=== PATIENT | male | born 1950 | race Caucasian/White ===

== ENCOUNTER → 2020-03-07 | Outpatient (CLI) | payer OTHER ==
[~2020-03-07] MED LIST: ADULT ASPIRIN R81 MG PO; ALLEGRA ALLERG180 MG PO; ATORVASTATIN CA80 MG PO; BACTRIM DS TAB1 EAC1 PO; CIALIS20 MG PO; CIPRO500 M1 PO; DOXYCYCLINE 10100 MG PO; EFFIENT10 MG PO; FISH OIL 1,0001 EAC9 PO; GLIPIZIDE 10 MG10 MG PO; HUMALOG100 UNIT/1 SUBQ; LATANOPROST 0.2.5 ML OPHTHALMIC; LISINOPRIL-HCT1 EACH PO; METFORMIN HCL500 M3 PO; NORCO 10-325 T1 EACH PO; PRASUGREL HCL10 MG PO; TOUJEO MAX300 UNIT/1 SUBQ
== END ==
LOC: LAB 03-06 14:14
PROVIDERS: ATTEND Podiatrist
DX: Z01.812 Encounter for preprocedural laboratory examination (principal); Z20.828 Contact with and (suspected) exposure to other viral communicable diseases

== ENCOUNTER 2020-03-11 07:51 | Day surgery (SDC) | payer OTHER ==
[~2020-03-11] VITALS: Ht 182.9 cm; Wt 103.3 kg
--- NOTE | ~2020-03-11 | O ---
[facility] [place] [address] OPERATIVE REPORT Name: NOEMÍ ABERNATHY Room #: DEP [facility]..#: [id number] Admission: 03/11/20 Attend Phys: PEGGY Roque Discharge: 03/11/20 Date of : 52 Report #: [id number] THIS REPORT FOR: cc: Ghanshyam Arango MD,Sergio Beatty MD, DPM ~ CC: Joe Arango DATE OF SERVICE: 03/11/2020 SURGEON: Sergio Junior DPM. PREOPERATIVE DIAGNOSIS: Osteomyelitis, first metatarsal and great toe, left foot. POSTOPERATIVE DIAGNOSIS: Osteomyelitis, first metatarsal and great toe, left foot. PROCEDURES: Amputation first toe at metatarsophalangeal joint, left foot. In addition, partial excision of the first metatarsal bone, left foot. ANESTHESIA: General. HEMOSTASIS: Ankle tourniquet 250 mmHg. ESTIMATED BLOOD LOSS: Less than 10 mL. COMPLICATIONS: None. DESCRIPTION OF PROCEDURE: As follows: The patient was taken to the OR in satisfactory condition and placed on the table in the supine position. Following satisfactory administration of general endotracheal intubation anesthesia, a total of 19 mL of a 50:50 mixture of 1% plain lidocaine and 0.5% plain Marcaine was used around the first metatarsal of the left foot. A well-padded ankle tourniquet was placed around the left ankle. The foot was then prepped and draped in the usual sterile manner. An Esmarch bandage was used to exsanguinate the left foot and the ankle tourniquet was inflated to 250 mmHg. Attention was directed to the dorsal aspect of the left foot where a linear incision was made from the first metatarsocuneiform joint to the first metatarsophalangeal joint. The incision circumscribed the first MPJ. The incision was deepened through sharp and blunt dissection. All bleeders were clamped and bovied as deemed necessary. The incision was carried down around the first MPJ and the medial and lateral collateral ligaments were transected. The flexor and extensor tendons were transected. The first toe was [facility] [address] [place] [address] OPERATIVE REPORT Name: NOEMÍ ABERNATHY Room #: [place] [facility] [place] M.R.#: [id number] Admission: 03/11/20 Attend Phys: PEGGY Roque Discharge: 03/11/20 Date of : 52 Report #: [id number] disarticulated. It was removed in toto and passed from the table. The linear incision on the dorsal aspect of the metatarsal was modified to circumscribe the wound on the medial aspect of the metatarsal. The incision was deepened through the deep fascia to the level of bone. The fascial tissue was dissected sharply with a 15 blade. A sagittal saw was used to create an osteotomy at the proximal aspect of the metatarsal. The metatarsal was then dissected free, removed in toto and passed from the table. A copious pulse lavage was performed with approximately 1500 mL of normal sterile saline. Any redundant tissue was excised with a 15 blade. Any bleeders noted were clamped and bovied as deemed necessary. The deep fascial tissue was closed using #3-0 Vicryl in a simple interrupted manner. Subcutaneous tissue was closed using #4-0 Vicryl in a simple interrupted manner. Skin closure was obtained using #4-0 Prolene in a continuous running horizontal mattress fashion. Excellent apposition of the skin edges was appreciated. The skin incision was dressed with Betadine-impregnated Adaptic, 4 x 4 gauze and overlying Clotilde. The ankle tourniquet was released and normal vascular status returned to all remaining digits of the left foot. The patient tolerated the procedure and anesthesia well and left the OR in satisfactory condition with vital signs stable. By: [id number] Sergio Junior DPM /sam
[2020-03-11 09:15] LABS: CALCIUM 9.2 mg/dL (8.5-10.1); POTASSIUM 4.1 mmol/L (3.5-5.1)
[2020-03-11 09:20] LABS: ALBUMIN 3.7 g/dL (3.4-5.0); TOTAL BILIRUBIN 0.3 mg/dL (0.2-1.0); TOTAL PROTEIN 7.8 g/dL (6.4-8.2)
[2020-03-11 09:26] VITALS: BP 143/81
--- NOTE | 2020-03-11 10:10 | EKG ---
[facility] [place] [address] ELECTROCARDIOGRAM REPORT Name: NOEMÍ ABERNATHY Room #: REG [facility] M..#: [id number] Admission: 03/11/20 Attend Phys: PEGGY Roque Discharge: Date of : 52 Report #: [id number] THIS REPORT FOR: cc: Ghanshyam Arango MD, Robert M. MD Lundgren,Dimitris Lee MD [facility] ~ THIS REPORT FOR: //name// [facility] Test Date: 2020-03-11 Test Time: 08:40:01 Pat Name: NOEMÍ ABERNATHY Department: Room: Gender: Fruit Raiser: : 1950 Requested By: Sergio Junior Order Number: [id number] MD: Dimitris Dorsey Measurements Intervals [place] Rate: 73 P: 16 SC: 182 QRS: -12 QRSD: 99 T: 46 QT: 397 QTc: 438 Interpretive Statements Sinus rhythm Baseline wander in lead(s) I,II,aVR,aVF No previous ECG available for comparison Electronically Signed On 03-11-2020 10:10:26 PEARL CUTTER by Dimitris Dorsey [email or web address] <ELECTRONICALLY SIGNED> By: Dimitris Dorsey MD, FAC 03/11/20 1010 0840 08 Dimitris Dorsey MD, [facility] /EPI
[2020-03-11 11:44] VITALS: BP 143/81
--- NOTE | 2020-03-14 13:08 | PATH ---
[facility] [address] [place] [address] PATHOLOGY RPT PROCEDURE Name: NOEMÍ HAGER Room #: DEP [facility] M.R.#: [id number] Admission: 03/11/20 Date of : 52 Discharge: 03/11/20 Report #: [id number] Path Case #: [id number] [facility] Accession Number: [id number] . 01 Material submitted: . foot - LEFT FIRST RAY. Modifiers: left . 01 Clinical history: . AMPUTATION OF TOES . 02 Diagnosis: Left first ray, amputation of toes: - Acute osteomyelitis associated with osteonecrosis. - Overlying skin showing ulceration along with fibrinoid degeneration as well as necrosis. - Inked margin with viable bone. . (IUV:mml; 03/13/2020) QLM 03/13/2020 1641 Local . 02 Electronically signed: . Jeanette Nowak MD, Pathologist NPI- [id number] . 01 Gross description: . The specimen is received in formalin, labeled "Noemí Hager, left first ray". Received is a segment of bone displaying one smooth, convex disarticulated margin, and one smooth, concave articular margin, measuring 7.3 x 3.5 x 2.4 cm in greatest dimensions. The concave margin is inked black. A full-thickness longitudinal cross-section is submitted from convex to concave aspects, following decalcification. . Also received within the specimen container are two additional fragments of bone admixed with skin measuring 6.3 x 3.9 x 2.2 cm in aggregate dimensions. The epidermal surface displays a poorly circumscribed, irregular in contour and light olson to guevara-olson lesion measuring 3.9 x 2.0 cm. The specimen is submitted representatively in cassette A4, following decalcification, to include sections through the lesion. (CAA; 03/12/2020) QA/[facility] 03/13/2020 1602 Local . 02 Pathologist provided ICD-10: M86.172, M87.872 . 02 CPT . 593749, 203661 Specimen Comment: A courtesy copy of this report has been sent to [phone] [place] [address] PATHOLOGY RPT PROCEDURE Name: NOEMÍ HAGER Room #: DEP [facility] M.R.#: [id number] Admission: 03/11/20 Date of : 52 Discharge: 03/11/20 Report #: [id number] Path Case #: [id number] Specimen Comment: Report sent to Performed at: [address] [facility], [place], [place] [id number] MD Jermaine Cuevas MD Phone: [phone] Performed at: [address] [facility] [id number] MD Jeanette Nowak MD Phone: [phone]
== END 2020-03-11 12:50 | disposition home or self-care (01) ==
LOC: OR 07:51 → TBA 09:00 → OR 11:09
PROVIDERS: ATTEND Podiatrist
DX: M86.172 Other acute osteomyelitis, left ankle and foot (principal); M87.875 Other osteonecrosis, left foot; I10 Essential (primary) hypertension; E11.9 Type 2 diabetes mellitus without complications; E78.00 Pure hypercholesterolemia, unspecified; J43.9 Emphysema, unspecified; G47.30 Sleep apnea, unspecified; F32.9 Major depressive disorder, single episode, unspecified; F41.9 Anxiety disorder, unspecified; H40.9 Unspecified glaucoma; Z98.890 Other specified postprocedural states; Z79.899 Other long term (current) drug therapy; Z79.4 Long term (current) use of insulin
CPT/HCPCS: 50010; 50101; 50386; 53078; 56526; 57091; 57103; 57178; 62110; 62900; 70005